=== PATIENT | male | born 1960 | race Caucasian/White ===

== ENCOUNTER → 2017-02-28 | Outpatient (CLI) | payer BC, MEDICARE ==
[~2017-02-28] MED LIST: ALBU0.63 IH; AMLO1TAB91 PO; ATOR40TA PO; CYAN100T PO; ESOM40CA PO; FENO48TA16 PO; FLUT1DIS5 IH; LEXIPRO; METF10002 PO; TAMS0.4C97 PO; VITA400C11 PO; [UNRECOGNIZED DRUG - CODE] MC; [UNRECOGNIZED DRUG - OTHER]; [UNRECOGNIZED DRUG - OTHER]
--- NOTE | 2017-02-28 14:17 | RAD ---
Bone densitometry scan, 02/28/2017: History: Osteoporosis screening The lumbar spine and right hip were examined utilizing a DEXA technique. The bone mineral density in the lumbar spine as measured from the L1-L4 levels is 1.08 g/sq cm. This yields a T score of -0.8 which is in the normal range. The total T score at the right hip is 0.84. This yields a T score of -1.3 suggesting osteopenia. IMPRESSION: Osteopenia at the right hip.
--- NOTE | 2017-02-28 14:55 | RAD ---
CT of the chest without contrast, 02/28/2017: History: Follow-up pulmonary nodules Noncontrast scans were obtained as requested. Comparison is made to a study from 05/22/2016. There are emphysematous changes in the lungs. There are scattered parenchymal scars. Two calcified granulomata are present in the left lower lobe. There is a 4 mm noncalcified nodule in the right middle lobe on image 67 of series #2 which is unchanged. The sagittal view shows that it is slightly elongated in configuration. A 4 mm noncalcified nodule in the medial last aspect of the right upper lobe as seen on image 29 of series #2 is also unchanged. These 2 nodules are also unchanged when compared to the oldest available CT exam from 12/29/2013. No new or enlarging pulmonary opacities are seen. There is no evidence of pleural fluid. There is mild calcific plaquing of the thoracic aorta without evidence of aneurysm. Minimal coronary artery calcification is present. There are calcified mediastinal and left hilar lymph nodes compatible with old granulomatous disease. No mediastinal adenopathy is seen. A tiny unchanged low-density lesion in the right lobe of the thyroid gland is probably a cyst. IMPRESSION: 1. Emphysema with parenchymal scarring. 2. Old healed granulomatous disease in the chest. 3. Stable small right middle lobe and right upper lobe pulmonary nodules as described above, most likely noncalcified granulomas. PQRS Compliance Statement: One or more of the following individualized dose reduction techniques were utilized for this examination: 1. Automated exposure control 2. Adjustment of the mA and/or kV according to patient size 3. Use of iterative reconstruction technique
== END | disposition home or self-care (01) ==
LOC: CT 09:40
PROVIDERS: ATTEND Family Medicine
DX: Z13.820 Encounter for screening for osteoporosis (principal); M85.80 Other specified disorders of bone density and structure, unspecified site; J43.9 Emphysema, unspecified; R63.4 Abnormal weight loss; R91.8 Other nonspecific abnormal finding of lung field
CPT/HCPCS: 71250; 77080

== ENCOUNTER → 2017-07-19 | Outpatient (CLI) | payer BC, MEDICARE ==
--- NOTE | 2017-07-19 12:22 | RAD ---
Indication dizziness. Suspect CVA. History of peripheral vascular disease. Grayscale color Doppler and spectral imaging was performed. The examination was targeted to the carotid bifurcations. On the left there is some intimal thickening. Some modest soft and hard plaquing is seen. The color Doppler images do not suggest significant turbulence. The common carotid waveform and velocities are within normal limits. The internal carotid waveform and velocities are within normal limits. The external carotid has a normal appearance. The vertebral is patent and demonstrates normal directional flow. On the right there is also some intimal thickening and plaquing similar to the contralateral side. The color Doppler images do not suggest significant turbulence. The common carotid waveform and velocities are normal. The internal carotid is somewhat tortuous. The waveform and velocities are normal. The external carotid has a normal appearance. The vertebral is patent and demonstrates normal directional flow. IMPRESSION: Plaquing at the carotid bifurcations. No evidence of hemodynamically significant stenosis. Stenosis 0-50%. Note: Stenosis calculations for CT, MR and conventional angiography are based upon determination of the distal ICA diameter in accordance with the NASCET methodology. Stenosis calculations for doppler studies are derived from validated velocity criteria which are known to correlate with NASCET methodology of determining stenosis.
== END | disposition home or self-care (01) ==
LOC: US 09:36
PROVIDERS: ATTEND Family Medicine
DX: R09.89 Other specified symptoms and signs involving the circulatory and respiratory systems (principal); R42 Dizziness and giddiness
CPT/HCPCS: 93880

== ENCOUNTER → 2017-12-11 | Outpatient (CLI) | payer BC, MEDICARE ==
[2017-12-11 15:31] LABS: DIRECT BILIRUBIN 0.1 mg/dL (0.0-0.2); TOTAL BILIRUBIN 0.5 mg/dL (0.2-1.0); TOTAL PROTEIN 7.6 g/dL (6.4-8.2)
== END | disposition home or self-care (01) ==
LOC: LAB 14:40
PROVIDERS: ATTEND Podiatrist Foot & Ankle Surgery
DX: B35.1 Tinea unguium (principal); K21.9 Gastro-esophageal reflux disease without esophagitis; J44.9 Chronic obstructive pulmonary disease, unspecified
CPT/HCPCS: 36415; 80076

== ENCOUNTER → 2018-09-15 | Outpatient (CLI) | payer BC, MEDICARE ==
[~2018-09-15] MED LIST changes: -METF10002 PO; +METF10007 PO
--- NOTE | 2018-09-15 16:35 | RAD ---
Thyroid sonography Clinical indications: Thyroid nodule seen on CT study FINDINGS: The longitudinal AP and transverse dimensions of the right lobe of the thyroid gland are 4.4 cm and 1.8 cm and 1.6 cm respectively. There is a small solid nodule within the lower pole measuring 8 mm. The longitudinal AP and transverse dimensions of the left lobe are 4.5 cm and 1.87 m and 1.47 m respectively. There is a small hypoechoic solid nodule of the posterior lower lobe measuring 6 mm in size. There is a smaller hypoechoic nodule with sound through-transmission within the lower pole measuring 3 mm in size. The isthmus measures 5 mm in thickness and is homogeneous. IMPRESSION: Bilateral small thyroid nodules. Recommend follow-up sonography of the thyroid gland and 6 months. Electronically signed by: Juan A Daly MD (09/15/2018 4:32 PM) [facility]
== END | disposition home or self-care (01) ==
LOC: US 15:12
DX: E04.2 Nontoxic multinodular goiter (principal); D45 Polycythemia vera
CPT/HCPCS: 76536

== ENCOUNTER → 2019-11-19 | Outpatient (CLI) | payer BC, MEDICARE ==
[~2019-11-19] MED LIST changes: -CYAN100T PO; +CYAN100T2 PO
--- NOTE | 2019-11-19 09:03 | RAD ---
Right lower extremity arterial Doppler dated 11/19/2019. No comparison available. CLINICAL INDICATION: Right leg pain. FINDINGS: Grayscale, color-flow and spectral waveform analysis performed to include the arterial tree of the right lower extremity. There is minimal luminal irregularity throughout suggesting mild diffuse atherosclerotic plaquing. No focal stenosis. The waveforms are triphasic throughout. No focal velocity elevation. IMPRESSION: Mild diffuse atherosclerotic plaquing with no evidence of hemodynamically significant arterial stenosis. Electronically signed by: Westley Cobb MD (11/19/2019 9:00 AM) [id number]
== END | disposition home or self-care (01) ==
LOC: US 07:16
PROVIDERS: ATTEND Family Medicine
DX: I70.291 Other atherosclerosis of native arteries of extremities, right leg (principal)
CPT/HCPCS: 93926

== ENCOUNTER → 2020-10-27 | Outpatient (CLI) | payer MEDICARE, OTHER ==
[~2020-10-27] MED LIST changes: -CYAN100T2 PO; +CYAN100T21 PO
--- NOTE | 2020-10-27 12:50 | RAD ---
PQRS Compliance Statement: One or more of the following individualized dose reduction techniques were utilized for this examinat ion: 1. Automated exposure control 2. Adjustment of the mA and/or kV according to patient size 3. Use of iterative reconstruction technique CT LOW DOSE LUNG SCREEN 10/27/2020 9:09 AM Indication: Smoker for 46 years, one pack per day COMPARISON: None available. TECHNIQUE: Multiple axial CT images of the chest were obtained without intravenous contrast utilizing low-dose technique. Coronal and sagittal reformats are provided. FINDINGS: 4 mm solid noncalcified pulmonary nodules identified in the left upper lobe (series 2, image 152). Ca lcified granuloma in the left lower lobe measures 9 mm. Additional scattered calcified granulomas are present. There is a 4 mm solid noncalcified pulmonary nodule in the right middle lobe (series 2, mara ge 205). Moderate centrilobular and paraseptal pulmonary emphysema. Findings predominantly involve th e upper lobes. No pleural effusions, pulmonary vascular congestion or pneumothorax. Mild bronchial wa ll thickening canal with nonspecific bronchitis. Central airways are clear. Their gland is mildly het erogeneous. Nonenlarged thoracic lymph nodes are identified. No pathologically enlarged thoracic lymp h nodes are present. Heart size within normal limits. Thoracic aorta is normal in course and caliber with minor calcified plaque. Three-vessel coronary artery vascular calcific effusions are present. Ca lcified mediastinal and bilateral hilar lymph nodes are identified. Calcifications within the spleen likely represent sequela prior granulomatous exposure. No suspicious osseous lesion is identified. Ch olecystectomy changes are present. IMPRESSION: 1. Solid noncalcified pulmonary nodules measure up to 4 mm. Lung RADS category 2, benign appearance a nd behavior. Recommend low-dose chest CT in one year. 2. Moderate centrilobular paraseptal pulmonary emphysema. Mild nonspecific bronchitis. Electronically signed by: Loly Severino MD (10/27/2020 12:48 PM) [id number]
--- NOTE | 2020-10-27 13:48 | RAD ---
Thyroid ultrasound study compared to similar exam dated September 15, 2018 for thyroid nodule follow-u p. TECHNIQUE AND FINDINGS: Real-time grayscale and color Doppler evaluation of the thyroid gland is perf ormed. The right lobe measures 4.9 x 2.3 x 2.0 cm and the left measures 4.5 x 1.7 x 1.6 cm. The isthm us measures 5 mm in thickness. There is normal blood flow throughout the gland. Echotexture is heterogeneous. Within the inferior aspect the right lobe of the thyroid gland, there i s a loosely circumscribed solid hyperechoic nodule measuring 1.0 x 0.7 x 0.9 cm, which is wider than tall and lacks any calcifications. This is unchanged from the prior study. This is a TR 3 lesion. Pre viously seen hypoechoic nodule in the left thyroid lobe is not well depicted today. No other thyroid nodules or masses are identified. No suspicious adenopathy. IMPRESSION: 1. Stable right thyroid nodule, TR3. ACR TI-RADS 2017 Composition - cystic or completely cystic: Benign, no further score - spongiform: Benign, no further score - mixed cystic and Solid: 1 point - solid or almost completely solid: 2 points Echogenicity - anechoic: 0 points - hyper- or isoechoic: 1 point - hypoechoic: 2 points - very hypoechoic: 3 points Shape (assess on transverse plane) - wider than tall: 0 points - taller than wide: 3 points Margin - smooth: 0 points - ill-defined: 0 points - lobulated/irregular: 2 points - extra-thyroidal extension: 3 points Echogenic Foci - none: 0 points - large comet tail artifact: 1 point - peripheral/rim calcifications: 2 points - punctate echogenic foci: 3 points TR1 - 0-1 points; Benign TR2 - 2 points; Not Suspicious TR3 - 3 points; Mildly Suspicious; Follow-up at 1,3,5 years for >= 1.5cm and FNA for >=2.5cm TR4 - 4-6 points; Moderately Suspicious; Follow-up at 1,2,3,5 years for >= 1.0cm and FNA for >= 1.5cm TR5 - 7+ points; Highly Suspicous; Follow=up at 1,2,3,4,5 years for >= 0.5cm and FNA for >= 1.0cm Notes: Only score and report the Four highest scoring nodules. Significant interval enlargement on fo llow-uup is defined as >20% and > 2mm in two dimensions or > 50% increase in volume. If there are mul tiple nodules, the two with the highest ACR TI-RADS score should be sampled, rather than the two larg est. Electronically signed by: Roman Bauer MD (10/27/2020 1:45 PM) [id number]
== END ==
LOC: US 08:51
PROVIDERS: ATTEND Internal Medicine Hematology & Oncology
DX: Z12.2 Encounter for screening for malignant neoplasm of respiratory organs (principal); E04.1 Nontoxic single thyroid nodule; R91.1 Solitary pulmonary nodule; I31.3 Pericardial effusion (noninflammatory); J43.2 Centrilobular emphysema; I70.0 Atherosclerosis of aorta; F17.210 Nicotine dependence, cigarettes, uncomplicated
CPT/HCPCS: 71271; 76536

== ENCOUNTER → 2021-09-07 | Outpatient (CLI) | payer MEDICARE, OTHER ==
--- NOTE | 2021-09-07 13:53 | RAD ---
EXAM: CT CHEST WITHOUT CONTRAST (LDCT LUNG CANCER SCREENING). HISTORY: Risk factors for pulmonary malignancy. 50 year smoker TECHNIQUE: CT of the chest was performed without intravenous contrast using a low-dose lung screening protocol. Findings analysis is based on ACR Lung-RADS v1.1. *One or more of the following individual ized dose reduction techniques were utilized for this examination: 1. Automated exposure control. 2. Adjustment of the mA and/or kV according to patient size. 3. Use of iterative reconstruction technique. COMPARISON: CT of the chest, low dose lung cancer screening exam October 27, 2020 FINDINGS: Nodules: 4 mm noncalcified pulmonary nodule right middle lobe is stable. Other scattered calcified no dules are seen. Emphysematous changes again noted. No acute infiltrates are identified. No effusion or pneumothorax i s seen. Heart size is normal. Mild coronary calcification noted. No pathologically enlarged mediastin al adenopathy is identified. No acute abnormalities of the upper abdomen are identified. No acute osseous abnormalities are seen. IMPRESSION/RECOMMENDATION: 1. 4 mm nodule, right middle lobe. Stable. ACR Lung-RADS category: 2. 2. Continue annual screening with LDCT in 12 months. Electronically signed by: Josh Alejandra MD (09/07/2021 1:50 PM) [id number]
== END ==
LOC: CT 11:11
PROVIDERS: ATTEND Internal Medicine
DX: Z12.2 Encounter for screening for malignant neoplasm of respiratory organs (principal); J43.9 Emphysema, unspecified; I25.10 Atherosclerotic heart disease of native coronary artery without angina pectoris; F17.210 Nicotine dependence, cigarettes, uncomplicated; R91.8 Other nonspecific abnormal finding of lung field; Z91.89 Other specified personal risk factors, not elsewhere classified
CPT/HCPCS: 71271